=== PATIENT | female | born 1990 | race Caucasian/White ===

== ENCOUNTER → 2016-11-21 | Outpatient (CLI) | payer MEDICAID ==
[~2016-11-21] MED LIST: FERRTAB2 PO; IBUP-232 PO; LANC1MIS74; MACR100C2 PO; ONETTES4; PRENMIS7 PO; SENN1TAB PO; ZOFR4TAB3 SL
== END ==
LOC: CDED 08:57
DX: O24.410 Gestational diabetes mellitus in pregnancy, diet controlled (principal)
CPT/HCPCS: 97802

== ENCOUNTER → 2016-12-04 | Outpatient (CLI) | payer MEDICAID | LOC: HPND 10:36 | PROVIDERS: ATTEND Obstetrics & Gynecology | DX: O24.410 Gestational diabetes mellitus in pregnancy, diet controlled (principal); O09.33 Supervision of pregnancy with insufficient antenatal care, third trimester | CPT/HCPCS: 76816 ==

== ENCOUNTER 2016-12-19 22:04 | Emergency (ER) | payer MEDICAID ==
[2016-12-19] VITALS (18 sets, daily range): PULSE 85–118; RESP 18; TEMP 97.8
[~2016-12-19 22:04] MED LIST changes: -IBUP-232 PO; -MACR100C2 PO; -SENN1TAB PO; -ZOFR4TAB3 SL
[2016-12-19] MEDS ORDERED: ONDANSETRON HCL 4 MG/2 ML VIAL IV ONE (22:45)
[2016-12-19] MEDS ORDERED: LACTATED RINGER'S 1000 ML INJ 1,000 ML IV ONE (22:45)
--- NOTE | 2016-12-19 22:50 | PD ---
HPI Chief Complaint Contractions since 645 Date Seen: Dec 19, 2016 Time Seen: 22:45 Travel History International Travel<30 Days: No Contact w/Intl Traveler<30Days: No Known Affected Area: No History of Present Illness HPI 26-year-old who is at 33 weeks gestation, complains of irregular contractions since 645 this evening. No vaginal bleeding or discharge noted. Good movement. Contractions have been unchanged during this time. No history of labor during this . Patient is not been eating or hydrating well due to continued problems with nausea and vomiting since her first trimester Para: 1 : 2 History Past Medical History Narrative Medical gestational diabetes this , diet controlled with good Accu-Cheks Nausea vomiting throughout this Obstetric History Obstetric History Spontaneous vaginal delivery 3 years ago Family History Family History: Negative Social History Alcohol Use: No Tobacco Use: No Substance Abuse: No Allergies-Medications (Allergen,Severity, Reaction): Coded Allergies: Bactrim (Verified Adverse Reaction, Unknown, Nausea/Vomiting, 12/16/16) Home Meds Active Scripts Onetouch Ultra Test Strips 1 Sharri Sharri #100 STRIP .ROUTE DIRECTED Ref 3 Prov:Aisha Morris CNM [facility] 11/25/16 Onetouch Delica Lancets E 1 Mis Mis #100 EA .ROUTE DIRECTED Ref 3 Prov:Aisha Morris CNM [facility] 11/25/16 Multi-Vit/Iron-Folic Kcxg-E11-Aug C (Ferralet)90-1-0.012-120 mg Tab1 Tab PO DAILY #30 BOTTLE Ref 3 Prov:Aisha Morris CNM [facility] 11/25/16 W/O Vit A W/ Fe Carbo Pack (Citranatal B-Calm Pack)20-1 & 25 (2) Mg Pack1 Ea PO DIRECTED #6 BLISTER Ref 3 30 day supply. Prov:Aisha Morris CNM [facility] 11/25/16 Review of Systems Except as stated in HPI: all other systems reviewed are Neg Physical Exam Narrative GENERAL: Well-nourished, well-developed patient. SKIN: Warm and dry. HEAD: Normocephalic and atraumatic. EYES: No scleral icterus. No injection or drainage. ENT: No nasal drainage noted. Mucous membranes pink. Airway patent. NECK: Supple, trachea midline. No JVD. CARDIOVASCULAR: Regular rate and rhythm without murmurs, gallops, or rubs. RESPIRATORY: Breath sounds equal bilaterally. No accessory muscle use. BREASTS: Bilateral exam showed no masses , no retractions, no nipple discharge. ABDOMEN/GI: Abdomen soft, non-tender, bowel sounds present, no rebound, no guarding Gravid to [-] weeks size Fundal Height: [-32] GENITOURINARY: External Genitalia: intact and normal in appearance BUS glands: [-Normal] Cervix: Posterior Dilatation: Closed Effacement: 50 Station: -3 Presentation: Vertex Membranes: Intact head is ballotable Uterine Contractions: [-Irregular every 4-6 minutes] FHT's: Category: [-1] Baseline: 150 Reactive: Moderate Variability: Moderate Decels: Absent EXTREMITIES: No cyanosis or edema. BACK: Nontender without obvious deformity. No CVA tenderness. NEUROLOGICAL: Awake and alert. Motor and sensory grossly within normal limits. Five out of 5 muscle strength in all muscle groups. Normal speech. Data Data Vital Signs Reviewed: Yes Orders Vital Signs (Adult) .ON ADMISSION (12/19/16 22:33) ^ Labor Status (12/19/16 22:33) Urinalysis - C+S If Indicated (12/19/16 22:33) ^ Hydration (12/19/16 22:33) Ondansetron Inj (Zofran Inj) (12/19/16 22:45) Lactated Ringer's 1000 Ml Inj (Lr 1000 M (12/19/16 22:45) Labs Laboratory Tests Test 12/19/16 22:35 Urine Color YELLOW Urine Turbidity HAZY Urine pH 6.0 Urine Specific [place] 1.022 Urine Protein 30 mg/dL Urine Glucose (UA) NEG mg/dL Urine Ketones 150 mg/dL Urine Occult Blood NEG Urine Nitrite NEG Urine Bilirubin NEG Urine Urobilinogen LESS THAN 2.0 MG/DL Urine Leukocyte Esterase LARGE Urine RBC 5 /hpf Urine WBC 113 /hpf Urine Squamous Epithelial 13 /hpf Cells Urine Bacteria FEW /hpf Urine Hyaline Casts 2 /lpf Urine Mucus FEW /lpf Microscopic Urinalysis Comment CULTURE INDICATED MDM Plan 33 weeks gestation with nausea/vomiting dehydration. Contractions much improved with IV hydration Will recommend outpatient Macrobid and Zofran with continued oral hydration Follow up with OB provider next week Diagnosis Diagnosis: Primary Impression: 33 weeks gestation of Additional Impressions: Irregular uterine contractions Dehydration Urinary tract infection affecting care of mother in third trimester, antepartum Disposition: 01 DISCHARGE HOME Scripts Ondansetron Odt (Zofran Odt)4 Mg Tab4 Mg SL Q6HR PRN (Nausea/Vomiting) #30 TAB Ref 0 Prov:Enedelia Engel MD 12/20/16 Nitrofurantoin Monohydrate Macrocrystals (Macrobid)100 Mg [id number] Mg PO BID #14 CAP Ref 0 Prov:Enedelia Engel MD 12/20/16 Enedelia Engel MD Dec 19, 2016 22:50
[2016-12-19 23:18] LABS: BACTERIA, URINE FEW /hpf; BLOOD, URINE NEG (NEG); COMMENT (UR) CULTURE INDICATED; CULTURE IF INDICATED CULTURE INDICATED; GLUCOSE,URINE NEG (NEG); HYALINE CAST, URINE 2 /lpf (RARE); KETONE, URINE 150 mg/dL (NEG); MUCUS URINE FEW /lpf (OCC); NITRITE,URINE NEG (NEG); SQUAMOUS EPITHELIAL CELL URINE 13 /hpf (0-5); URINE COLOR YELLOW (YELLW/STRAW)
[2016-12-20] VITALS: PULSE 107; RESP 18
[2016-12-20] MEDS ORDERED: MACR100C2 PO (00:03)
[2016-12-20] MEDS ORDERED: ZOFR4TAB3 SL (00:03)
[2016-12-20 00:05] VITALS: PULSE 104
[2016-12-20 00:10] VITALS: PULSE 108
[2016-12-20 00:15] VITALS: PULSE 101
[2016-12-20 00:20] VITALS: PULSE 104
[2016-12-20 00:25] VITALS: PULSE 103
== END 2016-12-20 01:34 | disposition home or self-care (01) ==
LOC: HOBED 22:04
DX: O62.2 Other uterine inertia (principal); O23.93 Unspecified genitourinary tract infection in pregnancy, third trimester; O21.0 Mild hyperemesis gravidarum; O99.283 Endocrine, nutritional and metabolic diseases complicating pregnancy, third trimester; O24.410 Gestational diabetes mellitus in pregnancy, diet controlled; Z3A.33 33 weeks gestation of pregnancy; N39.0 Urinary tract infection, site not specified; E86.0 Dehydration
CPT/HCPCS: 81001; 87086; 96361; 96374

== ENCOUNTER 2017-02-05 03:58 | Inpatient (IN) | payer MEDICAID ==
[~2017-02-05] VITALS: Ht 157.5 cm; Wt 70.3 kg
[~2017-02-05 03:58] MED LIST changes: +ZOFR4TAB3 SL
[2017-02-05] MEDS ORDERED: LACTATED RINGER'S 1000 ML INJ 1,000 ML IV PRN (05:40)
[2017-02-05] MEDS ORDERED: OXYTOCIN 30 UNITS-500ML PREMIX 500 ML IV ONE (05:45)
[2017-02-05] MEDS ORDERED: LIDOCAINE HCL 1% 50 ML VIAL INFIL PRN (05:45)
[2017-02-05] MEDS ORDERED: LIDOCAINE HCL 1% 50 ML VIAL I-DERMAL PRN (05:45)
[2017-02-05] MEDS ORDERED: CITRIC ACID-SODIUM CITRATE LIQ 30 ML UDC PO SCH (05:45)
[2017-02-05] MEDS ORDERED: ONDANSETRON HCL 4 MG/2 ML VIAL IV PRN (05:45)
[2017-02-05] MEDS ORDERED: SODIUM CHLORID 0.9% 500 ML INJ 500 ML IV PRN (05:45)
[2017-02-05] MEDS ORDERED: MINERAL OIL 10 ML VIAL TOPICAL PRN (05:45)
[2017-02-05] MEDS ORDERED: PENICILLIN G POTASSIUM INJ 5,000,000 UNITS in SODIUM CHLORIDE 0.9% INJ 100 ML IV ONE (06:00)
[2017-02-05] MEDS ORDERED: SODIUM CHLOR 0.9% 1000 ML INJ 1,000 ML IV PRN (06:00)
[2017-02-05] MEDS: LACTATED RINGER'S 1000 ML INJ 1,000 ML IV SCH ×2 (06:17→18:09)
[2017-02-05 06:21] VITALS: BP 121/83; PULSE 75
[2017-02-05 06:23] VITALS: RESP 18
[2017-02-05 06:29] LABS: AUTOMATED NEUTROPHIL # 8.1 TH/MM3 (1.8-7.7); BASOPHIL # 0.1 TH/MM3 (0-0.2); BASOPHIL % 0.5 % (0.0-2.0); EOSINOPHIL # 0.1 TH/MM3 (0-0.4); EOSINOPHIL % 1.2 % (0.0-4.0); HEMATOCRIT 28.2 % (35.0-46.0); LYMPH % 24.9 % (9.0-44.0); MEAN CELL VOLUME 67.9 FL (80.0-100.0); MEAN CORPUSCULAR HEMOGLOBIN 21.7 PG (27.0-34.0); MONO % 5.3 % (0.0-8.0); NEUT % 68.1 % (16.0-70.0); PLATELET COUNT 156 TH/MM3 (150-450); RED BLOOD COUNT 4.15 MIL/MM3 (4.00-5.30); RED CELL DISTRIBUTION WIDTH 16.8 % (11.6-17.2); WHITE BLOOD COUNT 11.9 TH/MM3 (4.0-11.0)
[2017-02-05 06:33] LABS: BACTERIA, URINE MANY /hpf; BLOOD, URINE NEG (NEG); COMMENT (UR) CULTURE INDICATED; CULTURE IF INDICATED CULTURE INDICATED; GLUCOSE,URINE NEG (NEG); KETONE, URINE NEG (NEG); MUCUS URINE FEW /lpf (OCC); NITRITE,URINE NEG (NEG); SQUAMOUS EPITHELIAL CELL URINE 15 /hpf (0-5); URINE COLOR YELLOW (YELLW/STRAW)
[2017-02-05 06:34] LABS: HEMO FLAGS AUTO DIFF
[2017-02-05 07:00] VITALS: RESP 18; TEMP 98
[2017-02-05 07:01] VITALS: BP 116/80; PULSE 77
--- NOTE | 2017-02-05 07:36 | HHI.HP ---
History & Physical H&P HPI HPI Travel History International Travel<30 Days: No Contact w/Intl Traveler<30Days: No Known Affected Area: No History of Present Illness HPI This patient is a 26-year-old 2 para 1 EDC is February 06, 2017 presently at 39 weeks and 6 days she presents with chief complaint of onset of regular contractions early this morning. No rupture of membranes no vaginal bleeding the baby has been active. 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 3 oz. born here at [place] no major problems Past Surgical History Surgical History: No Previous Surgery Family History Family History: Negative Social History Alcohol Use: No Tobacco Use: No Substance Abuse: No Allergies-Medications Allergies-Medications (Allergen,Severity, Reaction): Coded Allergies: Bactrim (Verified Adverse Reaction, Unknown, Nausea/Vomiting, 02/05/17) Home Meds Active Scripts Onetouch Ultra Test Strips 1 Sharri Sharri #100 STRIP .ROUTE DIRECTED Ref 3 Prov:Aisha Morris CNMP 11/25/16 Onetouch Delica Lancets E 1 Mis Mis #100 EA .ROUTE DIRECTED Ref 3 Prov:Aisha Morris CNMP 11/25/16 Discontinued Scripts Ondansetron Odt (Zofran Odt)4 Mg Tab4 Mg SL Q6HR PRN (Nausea/Vomiting) #30 TAB Ref 0 Prov:Enedelia Engel MD 12/20/16 Multi-Vit/Iron-Folic Fjuk-R23-Dir C (Ferralet)90-1-0.012-120 mg Tab1 Tab PO DAILY #30 BOTTLE Ref 3 Prov:Aisha Morris CNMP 11/25/16 W/O Vit A W/ Fe Carbo Pack (Citranatal B-Calm Pack)20-1 & 25 (2) Mg Pack1 Ea PO DIRECTED #6 BLISTER Ref 3 30 day supply. Prov:Aisha Morris CNMP 11/25/16 Nitrofurantoin Monohydrate Macrocrystals (Macrobid)100 Mg [id number] Mg PO BID #14 CAP Ref 0 Prov:Enedelia Engel MD 12/20/16 ROS Review of Systems Gastrointestinal: Abdominal Pain (contractions as per history of present illness) Physical Exam Physical Exam Vital Signs Date Time Temp Pulse Resp B/P Pulse Ox O2 Delivery O2 Flow Rate FiO2 02/05/17 07:01 77 116/80 02/05/17 07:00 98.0 18 02/05/17 06:23 18 02/05/17 06:21 75 121/83 Narrative GENERAL: Well-nourished, well-developed patient. Alert oriented 3 and cooperative mild distress secondary to uterine contractions SKIN: Warm and dry. HEAD: Normocephalic and atraumatic. EYES: No scleral icterus. No injection or drainage. ENT: No nasal drainage noted. Mucous membranes pink. Airway patent. NECK: Supple, trachea midline. No JVD. CARDIOVASCULAR: Regular rate and rhythm without murmurs, gallops, or rubs. RESPIRATORY: Breath sounds equal bilaterally. No accessory muscle use. ABDOMEN/GI: Gravid term consistent with stated gestational age estimated weight of 7-1/2 pounds Gravid to [-] weeks size term Fundal Height: [-] GENITOURINARY: External Genitalia: intact and normal in appearance BUS glands: [-] Cervix: [-] Slightly posterior Dilatation: [-] 4 Effacement: [-] 50% Station: [-] -2 Presentation: [-] Vertex Membranes: [intact Uterine Contractions: [-] Every 4-5 minutes FHT's: Category: [-] 1 Baseline: [-]140 Reactive: [-]+ Variability: [-] Moderate iskb-[id number] variability Decels: [-] 0 EXTREMITIES: No cyanosis or edema. 2+ reflexes NEUROLOGICAL: Awake and alert. Motor and sensory grossly within normal limits. Five out of 5 muscle strength in all muscle groups. Normal speech. Data Data Data Vital Signs Reviewed: Yes Orders Ob (2e) Additional Admit Info (02/05/17 05:36) Admit To Inpatient (02/05/17 ) Code Status (02/05/17 05:40) Vital Signs (Adult) .Per protocol (02/05/17 05:40) Heart (02/05/17 05:40) Amnioinfusion (02/05/17 05:40) Urinary Catheter Management .ONCE (02/05/17 05:40) Diet Liquid (02/05/17 Breakfast) Lactated Ringer's 1000 Ml Inj (Lr 1000 M (02/05/17 05:40) Lactated Ringer's 1000 Ml Inj (Lr 1000 M (02/05/17 05:40) Sodium Chlorid 0.9% 500 Ml Inj (Ns 500 M (02/05/17 05:45) Sodium Chlor 0.9% 1000 Ml Inj (Ns 1000 M (02/05/17 06:00) Lidocaine 1% Inj (50 Ml) (Xylocaine 1% I (02/05/17 05:45) Citric Acid-Sodium Citrate Liq (Bicitra (02/05/17 05:45) Ondansetron Inj (Zofran Inj) (02/05/17 05:45) Fentanyl Inj (Fentanyl Inj) (02/05/17 05:45) Fentanyl Inj (Fentanyl Inj) (02/05/17 05:45) Penicillin G Potassium Inj (Pfizerpen-G (02/05/17 06:00) Penicillin G Potassium Inj (Pfizerpen-G (02/05/17 10:00) Complete Blood Count With Diff (02/05/17 05:40) Hold Clot (02/05/17 05:40) Abo/Rh Blood Type (02/05/17 05:40) Urinalysis - C+S If Indicated (02/05/17 05:40) Resp Oxygen Non Rebreathe Mask (02/05/17 ) ^ Epidural / Intrathecal Infus (02/05/17 05:40) Oxytocin 30 Units-500ml Premix (Pitocin (02/05/17 05:45) Lidocaine 1% Inj (50 Ml) (Xylocaine 1% I (02/05/17 05:45) Light Mineral Oil (Muri-Lube Oil) (02/05/17 05:45) Urine Culture (02/05/17 06:10) Labs Laboratory Tests Test 02/05/17 06:10 White Blood Count 11.9 Red Blood Count 4.15 Hemoglobin 9.0 Hematocrit 28.2 Mean Corpuscular Volume 67.9 Mean Corpuscular Hemoglobin 21.7 Mean Corpuscular Hemoglobin 32.0 Concent Red Cell Distribution Width 16.8 Platelet Count 156 Mean Platelet Volume 9.9 Neutrophils (%) (Auto) 68.1 Lymphocytes (%) (Auto) 24.9 Monocytes (%) (Auto) 5.3 Eosinophils (%) (Auto) 1.2 Basophils (%) (Auto) 0.5 Neutrophils # (Auto) 8.1 Lymphocytes # (Auto) 3.0 Monocytes # (Auto) 0.6 Eosinophils # (Auto) 0.1 Basophils # (Auto) 0.1 CBC Comment AUTO DIFF Urine Color YELLOW Urine Turbidity HAZY Urine pH 6.0 Urine Specific [place] 1.024 Urine Protein 30 Urine Glucose (UA) NEG Urine Ketones NEG Urine Occult Blood NEG Urine Nitrite NEG Urine Bilirubin NEG Urine Urobilinogen LESS THAN 2.0 Urine Leukocyte Esterase LARGE Urine RBC 5 Urine WBC 102 Urine Squamous Epithelial 15 Cells Urine Bacteria MANY Urine Mucus FEW Microscopic Urinalysis Comment CULTURE INDICATED Blood Type O POSITIVE Band and Hold HOLD CLOT IN BB Date/Time Procedure Status Source Growth 02/05/17 06:10 Urine Culture Received Urine Clean Catch Pending MDM MDM Medical Record Reviewed: Yes Interpretation(s) 26-year-old 2 para 1 at 39 weeks 6 days Active labor Gestational diabetes well controlled on diet Positive group B strep HPV high risk on Pap smear Patient does not desire an epidural Plan Admit External monitoring IV fluid hydration CBC type and screen Penicillin coverage for positive group B strep Will allow 2 doses of penicillin then artificial rupture of membranes and Pitocin augmentation Elma Fields MD February 05, 2017 07:35 Elma Fields MD February 05, 2017 07:36
--- NOTE | 2017-02-05 07:38 | PD.LABORPN ---
Subjective Subjective Patient's with no major complaints feeling the contractions every 4-5 minutes Does not want an epidural Objective Vital Signs Vital Signs Date Time Temp Pulse Resp B/P Pulse Ox O2 Delivery O2 Flow Rate FiO2 02/05/17 07:01 77 116/80 02/05/17 07:00 98.0 18 02/05/17 06:23 18 02/05/17 06:21 75 121/83 Objective Pelvic Exam: Cervix: [-] Midline Dilatation: [-] 4-5 cm Effacement: [-] 80% effaced Station: [-] -2 station Presentation: [-] Vertex Membranes: [intact Uterine Contractions: [-] Every 5 minute FHT's: Category: [-] 1 Baseline: [-] 140 Reactive: [-] + Variability: [-] Moderate [id number] variability Decels: [-] 0 Assessment/Plan Assessment and Plan Assessment 39 weeks 6 days Active labor Second dose of penicillin due to at 10 AM Plan We will augment with Pitocin Rupture of membranes after second dose of penicillin Elma Fields MD February 05, 2017 07:38
[2017-02-05] MEDS ORDERED: OXYTOCIN 30 UNITS-500ML PREMIX 500 ML IV SCH (07:45)
[2017-02-05 08:07] LABS: SCAN/DIFF AUTO DIFF CONFIRMED
[2017-02-05] MEDS: PENICILLIN G POTASSIUM INJ 2,500,000 UNITS in SODIUM CHLORIDE 0.9% INJ 100 ML IV SCH ×3 (10:03→18:09)
[2017-02-05] MEDS ORDERED: fentaNYL 2MCG-BUPIV 0.125% INJ 100 ML ONE (11:52)
[2017-02-05] MEDS ORDERED: ePHEDrine/NS 25 MG/5 ML SYR IV PRN (13:15)
[2017-02-05] MEDS ORDERED: NO SYSTEM NARCOTICS PRN (14:00)
[2017-02-05] MEDS ORDERED: fentaNYL 2MCG-BUPIV 0.125% 100 ML EPIDURAL SCH (14:00)
[2017-02-05] MEDS ORDERED: DO NOT ADMINISTER ANTICOAGULANTS PRN (14:00)
--- NOTE | 2017-02-05 14:16 | PD.LABORPN ---
Subjective Subjective Pt lying comfortably in bed. Epidural in place. Occasional contractions. Objective Vital Signs Vital Signs Date Time Temp Pulse Resp B/P Pulse Ox O2 Delivery O2 Flow Rate FiO2 02/05/17 07:01 77 116/80 02/05/17 07:00 98.0 18 02/05/17 06:23 18 02/05/17 06:21 75 121/83 Objective Pelvic Exam: Cervix: soft Dilatation: 7 Effacement: 80 Station: -1 Presentation: vertex Membranes: AROM performed, clear fluid; Bloody show present Uterine Contractions: q2-4mintues FHT's: Category: 1 Baseline: yes Reactive: yes Variability: moderate Decels: none Assessment/Plan Assessment and Plan 26 y/o at 39/6 in active labor Cervical exam: /-1 Category 1 FHT. Reactive strip Epidural in place - Continue Pitocin - PCN for GBS positive. - AROM performed, clear fluid - FHT - Expectant management - Plan for vaginal delivery Jeremias Martini MD R1 February 05, 2017 14:16
[2017-02-05] MEDS ORDERED: DIPHTH/TETANUS/ACEL PERTUSSIS (BOOSTER) 0.5 ML VIAL/PFS IM ONE (16:00)
[2017-02-05] MEDS ORDERED: MEASLES, MUMPS, RUBELLA VACCINE 0.5 ML VIAL SQ ONE (16:00)
[2017-02-05 21:54] LABS: BLOOD GAS BASE EXCESS -8.9 mmol/L (-2-2); BLOOD GAS O2 HGB SATURATION 36 % (90-100); CORD BLOOD GAS HCO3 19 mmol/L (21-29); CORD BLOOD GAS PCO2 60 mmHG (34-78); CORD BLOOD GAS PH 7.13 (7.14-7.42); CORD BLOOD GAS PO2 25 mmHG (3.0-40.0); DRAW SITE CORD BLOOD; STAT NO
--- NOTE | 2017-02-05 22:13 | PD.OB.DELI ---
Delivery Date: February 05, 2017 Anesthesia: Epidural Episiotomy: Midline Vaginal Delivery: Normal, Spontaneous Presentation: Occiput anterior, Vertex Nuchal Cord: x1 Delayed cord clamping (45 sec): No : Male One Minute : 6 Five Minute : 8 Weight: 3575 grams Placenta: Spontaneous delivery, Intact, 3 vessel cord Laceration: Episiotomy, 2 deg Repair: Chromic running Additional Information 26 year old now delivered vaginally following a midline episiotomy. Apgars were 6/8 and one and five minutes respectively. weight of 3575 grams. Placenta delivered spontaneously intact with 3-vessel cord. Midline episiotomy was repaired using a 2.0 running chromic suture. EBL < 500 cc. Guillermo Ge MD R1 February 05, 2017 22:13
[2017-02-05] MEDS ORDERED: ZOLPIDEM TARTRATE 5 MG TAB PO PRN (22:15)
[2017-02-05] MEDS ORDERED: SODIUM CHLORIDE 0.9% FLUSH 10 ML FLUSH IV FLUSH PRN (22:15)
[2017-02-05] MEDS ORDERED: ONDANSETRON ODT 4 MG TAB PO PRN (22:15)
[2017-02-05] MEDS ORDERED: OXYTOCIN 10 UNIT/ML AMP IM ONE (22:15)
[2017-02-05] MEDS ORDERED: DOCUSATE SODIUM 50 MG/SENNA 8.6 MG TAB PO PRN (22:15)
[2017-02-05] MEDS ORDERED: BENZOCAINE 20% TOPICAL SPRAY 60 ML CAN TOPICAL PRN (22:15)
[2017-02-05] MEDS ORDERED: ALUMINUM/MAGNESIUM/SIMETH 30 ML CUP PO PRN (22:15)
[2017-02-06] MEDS: WITCH HAZEL 50%/GLYCERIN 12.5% 40 PAD JAR TOPICAL PRN (01:06)
[2017-02-06] MEDS: ACETAMINOPHEN 325 MG TAB PO PRN ×2 (01:06→05:33)
[2017-02-06] MEDS: IBUPROFEN 600 MG TAB PO PRN ×3 (01:06→19:50)
[2017-02-06 08:00] VITALS: BP 123/96; PULSE 72; RESP 18; TEMP 98.1; O2SAT 98
--- NOTE | 2017-02-06 08:45 | HHI.OB ---
Subjective Post Day: 1 Remarks Ms. Torres is a 26-year-old who is PPD 1 from 02/05 at 2138. Afebrile with stable vital signs overnight. Patient reports that she has significant abdominal tenderness and requests increase in her pain medication. Patient states she is ambulating normally. Patient does not report significant dysuria. Patient passed gas normally. Patient does not report shortness of breath; she reports mild bilateral feet swelling. Patient reports persistent cough which she has had prior to delivery. Objective Vitals/I&O Vital Signs Date Time Temp Pulse Resp B/P Pulse Ox O2 Delivery O2 Flow Rate FiO2 02/06/17 02:06 18 02/06/17 02:06 18 02/05/17 18:10 18 Objective Remarks GENERAL: Well-nourished, well-developed patient. CARDIOVASCULAR: Regular rate and rhythm without murmurs, gallops, or rubs. RESPIRATORY: CTAB, normal rate ABDOMEN/GI: Abdomen soft, non-tender. Fundus: Firm, non-tender at umbilicus. GENITOURINARY: Light to moderate bleeding. EXTREMITIES: No cyanosis or edema, non-tender, without signs of DVT. Medications and IVs Current Medications Medications (Trade) Dose Ordered Sig/Bryant Route Start Time Stop Time Status Last Admin Lactated Ringer's 1,000 ml @ 125 mls/hr Q8H IV 02/05/17 05:40 02/05/17 18:09 Lactated Ringer's 1,000 ml @ 3,000 mls/hr Q20M PRN IV 02/05/17 05:40 (NS 1000 ml Inj) 1,000 ml @ 100 mls/hr Q10H PRN IV 02/05/17 06:00 (Zofran Inj) 4 mg Q6H PRN IV 02/05/17 05:45 (fentaNYL INJ) 50 mcg Q1H PRN IV PUSH 02/05/17 05:45 Fentanyl Citrate 100 mcg 100 mcg Q1H PRN IV PUSH 02/05/17 05:45 02/05/17 11:12 (Pfizerpen-G Inj/ NS Inj) 100 ml @ 200 mls/hr Q4H IV 02/05/17 10:00 02/05/17 18:09 Mineral Oil 10 ml 10 ml UNSCH PRN TOPICAL 02/05/17 05:45 (Pitocin 30 Units-NS 500 ml Premix) 500 ml @ 0 mls/hr TITRATE IV 02/05/17 07:45 02/05/17 08:08 Miscellaneous Information No systemic narcotics to be given except... UNSCH PRN .XX 02/05/17 14:00 02/06/17 13:59 Miscellaneous Information DO NOT ADMINISTER ANY ANTICOAGUL... UNSCH PRN .XX 02/05/17 14:00 02/06/17 13:59 (fentaNYL 2MCG-BUPIV 0.125% INJ) 100 ml @ 0 mls/hr TITRATE EPIDURAL 02/05/17 14:00 02/05/17 18:10 (ePHEDrine/NS 25 MG/5 ML SYR) 10 mg UNSCH PRN IV 02/05/17 13:15 02/06/17 13:14 (NS Flush) 2 ml BID IV FLUSH 02/06/17 09:00 (NS Flush) 2 ml UNSCH PRN IV FLUSH 02/05/17 22:15 (Tylenol) 650 mg Q4H PRN PO 02/05/17 22:15 02/06/17 05:33 (Motrin) 600 mg Q6H PRN PO 02/05/17 22:15 02/06/17 01:06 (Americaine 20% Top Spr) 1 spray Q4H PRN TOPICAL 02/05/17 22:15 02/06/17 01:07 (Tucks Pads) 1 applic QID PRN TOPICAL 02/05/17 22:15 02/06/17 01:06 (Irene-Colace) 2 tab Q12H PRN PO 02/05/17 22:15 (Ambien) 5 mg HS PRN PO 02/05/17 22:15 (Mag-Al Plus Susp Liq) 15 ml Q8H PRN PO 02/05/17 22:15 (Zofran Odt) 4 mg Q6H PRN PO 02/05/17 22:15 Assessment/Plan Problem List: (1) care and examination Assessment and Plan 26-year-old who is PPD 1 from 02/05 at 2138 -Continue to monitor vital signs and vaginal bleeding Will add Percocet for pain control Stool softener Encourage breast feeding Encourage ambulation Hugh Ash MD R2 February 06, 2017 08:45
[2017-02-06 09:00] VITALS: BP 123/96; PULSE 72; RESP 18; TEMP 98.1
[2017-02-06] MEDS ORDERED: SODIUM CHLORIDE 0.9% FLUSH 10 ML FLUSH IV FLUSH SCH (09:00)
[2017-02-06] MEDS ORDERED: oxyCODONE/ACETAMINOPHEN 5 MG/325 MG TAB PO PRN (09:00)
[2017-02-06] MEDS ORDERED: BENZONATATE 100 MG CAP PO PRN (09:00)
[2017-02-06] MEDS: oxyCODONE/ACETAMINOPHEN 5 MG/325 MG TAB PO PRN ×2 (09:45→14:27)
[2017-02-06 10:32] VITALS: BP 117/72
[2017-02-06 20:00] VITALS: BP 120/72; PULSE 91; RESP 18; TEMP 98.2
[2017-02-07 03:00] VITALS: BP 96/51; PULSE 66; RESP 18; TEMP 98.1
[2017-02-07] MEDS: oxyCODONE/ACETAMINOPHEN 5 MG/325 MG TAB PO PRN (07:30)
[2017-02-07] MEDS: IBUPROFEN 600 MG TAB PO PRN ×2 (07:30→14:13)
[2017-02-07 08:00] VITALS: BP 124/82; PULSE 76; RESP 16; TEMP 98.6
--- NOTE | 2017-02-07 09:29 | HHI.OB ---
Subjective Post Day: 2 Remarks Doing well, no concerns. Eating, urinating, and having bowel movements. Pain is well controlled. Objective Vitals/I&O Vital Signs Date Time Temp Pulse Resp B/P Pulse Ox O2 Delivery O2 Flow Rate FiO2 02/07/17 08:00 98.6 76 16 124/82 02/07/17 03:00 98.1 66 18 96/51 02/06/17 20:50 18 02/06/17 20:50 18 02/06/17 20:00 98.2 91 18 120/72 02/06/17 10:32 117/72 Objective Remarks GENERAL: Well-nourished, well-developed patient. CARDIOVASCULAR: Regular rate and rhythm without murmurs, gallops, or rubs. RESPIRATORY: CTAB, normal rate ABDOMEN/GI: Abdomen soft, non-tender. Fundus: Firm, non-tender at umbilicus. GENITOURINARY: Light to moderate bleeding. EXTREMITIES: No cyanosis or edema, non-tender, without signs of DVT. Medications and IVs Current Medications Medications (Trade) Dose Ordered Sig/Bryant Route Start Time Stop Time Status Last Admin Oxytocin 500 ml @ 0 mls/hr TITRATE IV 02/05/17 07:45 02/05/17 08:08 (fentaNYL 2MCG-BUPIV 0.125% INJ) 100 ml @ 0 mls/hr TITRATE EPIDURAL 02/05/17 14:00 02/05/17 18:10 (NS Flush) 2 ml BID IV FLUSH 02/06/17 09:00 (NS Flush) 2 ml UNSCH PRN IV FLUSH 02/05/17 22:15 (Tylenol) 650 mg Q4H PRN PO 02/05/17 22:15 02/06/17 05:33 (Motrin) 600 mg Q6H PRN PO 02/05/17 22:15 02/07/17 07:30 (Americaine 20% Top Spr) 1 spray Q4H PRN TOPICAL 02/05/17 22:15 02/06/17 01:07 (Tucks Pads) 1 applic QID PRN TOPICAL 02/05/17 22:15 02/06/17 01:06 (Irene-Colace) 2 tab Q12H PRN PO 02/05/17 22:15 02/07/17 07:29 (Ambien) 5 mg HS PRN PO 02/05/17 22:15 (Mag-Al Plus Susp Liq) 15 ml Q8H PRN PO 02/05/17 22:15 (Zofran Odt) 4 mg Q6H PRN PO 02/05/17 22:15 (Percocet 5-325 Mg) 1 tab Q4H PRN PO 02/06/17 09:00 02/07/17 07:30 (Percocet 5-325 Mg) 2 tab Q4H PRN PO 02/06/17 09:00 02/06/17 19:50 (Tessalon) 100 mg TID PRN PO 02/06/17 09:00 02/06/17 14:26 Assessment/Plan Problem List: (1) care and examination Assessment and Plan 26-year-old who is PPD 2 from 02/05 at 2138 -Continue to monitor vital signs and vaginal bleeding Will add Percocet for pain control Stool softener Encourage breast feeding Encourage ambulation Discontinue today 02/07/2017. Neil Hunt MD R2 February 07, 2017 09:29
--- NOTE | 2017-02-07 09:34 | HHI.DCPOC ---
Discharge Care Plan Diagnosis: (1) (normal spontaneous vaginal delivery) Report Symptoms to Your Doctor -Temperate above 100.5 degrees -Redness, of incision or excessive or foul smelling drainage -Unusual pain or calf pain -Increased vaginal bleeding -Painful or difficulty urinating -Feelings of extreme sadness or anxiety after 2 weeks Goals to Promote Your Health * To prevent worsening of your condition and complications * To maintain your health at the optimal level Directions to Meet Your Goals Take your medications as prescribed Follow your dietary instruction Follow activity as directed Ensure plenty of rest for recovery Drink fluids for hydration Keep your appointments as scheduled Take your immunizations and boosters as scheduled If your symptoms worsen call your PCP, if no PCP go to Urgent Care Center or Emergency Room Smoking is Dangerous to Your Health. Avoid second hand smoke Call the 24-hour crisis hotline for domestic abuse at Addendum Remarks I rounded on the patient. I rounded with the resident. I reviewed the resident' s assessment and plan of care for this patient. I am in agreement with the plan of care for this patient. Neil Hunt MD R2 February 07, 2017 09:34 Elma Fields MD February 07, 2017 09:53
[2017-02-07] MEDS ORDERED: SENN1TAB PO (09:36)
[2017-02-07] MEDS ORDERED: IBUP-232 PO (09:36)
[2017-02-07] MEDS: WITCH HAZEL 50%/GLYCERIN 12.5% 40 PAD JAR TOPICAL PRN (14:14)
== END 2017-02-07 15:13 | disposition home or self-care (01) | DRG 774 ==
LOC: HOBED 03:58 → H2EB 05:40 → H1EA 02-06 00:03
PROVIDERS: ADMIT Obstetrics & Gynecology; ATTEND Obstetrics & Gynecology
PROC: 10E0XZZ Delivery of Products of Conception, External Approach (ICD-10-PCS; principal; 2017-02-05)
PROC: 0KQM0ZZ Repair Perineum Muscle, Open Approach (ICD-10-PCS; 2017-02-05)
PROC: 0W8NXZZ Division of Female Perineum, External Approach (ICD-10-PCS; 2017-02-05)
PROC: 10907ZC Drainage of Amniotic Fluid, Therapeutic from Products of Conception, Via Natural or Artificial Opening (ICD-10-PCS; 2017-02-05)
PROC: 3E0S3CZ (ICD-10-PCS; 2017-02-05)
PROC: 00HU33Z Insertion of Infusion Device into Spinal Canal, Percutaneous Approach (ICD-10-PCS; 2017-02-05)
DX: O24.420 Gestational diabetes mellitus in childbirth, diet controlled (principal); O98.32 Other infections with a predominantly sexual mode of transmission complicating childbirth; A63.0 Anogenital (venereal) warts; O99.824 Streptococcus B carrier state complicating childbirth; O70.1 Second degree perineal laceration during delivery; O69.81X0 Labor and delivery complicated by cord around neck, without compression, not applicable or unspecified; Z37.0 Single live birth; Z3A.39 39 weeks gestation of pregnancy; R05 Cough
CPT/HCPCS: 81001; 82805; 82948; 85025; 86900; 86901; 87086; 90715; 99285; J2540; J2590; J3010; J7120